=== PATIENT | male | born 1935 | race Caucasian/White ===

== ENCOUNTER → 2016-09-02 | Outpatient (CLI) | payer OTHER, BC | LOC: BHCLAF 13:15 | PROVIDERS: ATTEND Internal Medicine Cardiovascular Disease | DX: I48.91 Unspecified atrial fibrillation (principal); I42.9 Cardiomyopathy, unspecified; I10 Essential (primary) hypertension | CPT/HCPCS: 93306-PO ==

== ENCOUNTER 2017-02-02 07:22 | Outpatient (CLI) | payer OTHER, BC ==
[2017-02-02] MEDS ORDERED: SODIUM BICARBONATE 150 MEQ in D5W 1,000 ML IV SCH (08:00)
[2017-02-02] MEDS ORDERED: IOPAMIDOL (ISOVUE 370) 100 ML BTL IV ONE (09:19)
[2017-02-02 11:11] VITALS: RESP 16
[2017-02-02 16:32] VITALS: BP 120/76; O2SAT 94
== END 2017-02-02 16:33 | disposition home or self-care (01) ==
LOC: FIMAGING 07:22
PROVIDERS: ATTEND Surgery
DX: I74.3 Embolism and thrombosis of arteries of the lower extremities (principal)
CPT/HCPCS: 75635; Q9967

== ENCOUNTER 2017-04-25 08:03 | Day surgery (SDC) | payer OTHER, BC ==
[2017-04-25] MEDS ORDERED: NS 1,000 ML IV ONE (08:09)
[2017-04-25] MEDS ORDERED: DIAZEPAM 5 MG TAB PO ONE (08:09)
[2017-04-25] MEDS ORDERED: ceFAZolin 2 GM/SWFI 2 GM/20 ML SYR IVP ONE (08:09)
[2017-04-25] MEDS ORDERED: diphenhydrAMINE 25 MG CAP PO ONE (08:09)
[2017-04-25] MEDS ORDERED: BACITRACIN IRRIGATION/NS 50,000 UNITS/1,000 ML BTL IRR ONE (08:09)
[2017-04-25] MEDS ORDERED: fentaNYL 100 MCG/2 ML INJ ONE (08:30)
[2017-04-25] MEDS ORDERED: BUPIVACAINE 0.5% 30 ML SDV ONE (08:30)
[2017-04-25] MEDS ORDERED: MIDAZOLAM 2 MG/2 ML VIAL ONE (08:30)
[2017-04-25] MEDS ORDERED: LIDOCAINE 1% 300 MG/30 ML SDV ONE (08:30)
--- NOTE | 2017-04-25 08:31 | CPEKG ---
Heart Rate: 75 RR Interval: 800 P-R Interval: 252 QRSD Interval: 130 QT Interval: 416 QTC Interval: 465 P Idanha: 0 QRS Idanha: 114 T Wave Idanha: -38 EKG Severity - ABNORMAL ECG - EKG Impression: VENTRICULAR-PACED RHYTHM EKG Impression: UNCHANGED IN COMPARISON TO PRIOR FROM 2015 Electronically Signed By: Leland Parham 25-Apr-2017 13:55:16
[2017-04-25 08:53] LABS: PLATELET COUNT 177 10^3/uL (150-400)
[2017-04-25 09:12] LABS: INR 1.33 (0.83-1.16); PROTIME(PATIENT) 16.7 SEC (12.0-15.0)
--- NOTE | 2017-04-25 09:23 | PDPROPOC ---
Sedation Plan of Care Sedation Plan of Care: vital signs stable, mental status noted, patient educated of risks, benefits, alternatives, patient can tolerate sedation ASA Classification: ASA 2 Planned drugs: fentanyl, midazolam Mallampati Score: Class 1 Mallampati Reference Image: Patient passed 3-3-2 rule?: Yes
--- NOTE | 2017-04-25 09:25 | PDGENHP ---
History & Physical Chief Complaint: ICD biventricular pacer at end of life History of Present Illness: 82-year-old male history of nonischemic cardiomyopathy with near normalization of ejection fraction with biventricular pacing and ICD. Device has reached end of life and requires replacement. Pertinent Past, Social, Family History: Family history, social history, past medical history noncontributory. Relevant Physical Exam: Well-nourished well-developed male no distress. Pacemaker pocket left subclavian fossa without erythema edema. Irregular irregular rhythm. 2/6 systolic murmur. Extremities free of edema. Lungs clear. Cardiorespiratory Assessment: No cardiopulmonary contraindications to proceeding with ICD/biventricular pacer generator change.
--- NOTE | 2017-04-25 10:55 | PDCTREPORT ---
Cardiothoracic Procedure Rpt Cardiothoracic Procedure Report: Procedure: Replacement of a ICD/biventricular pacemaker. Indications: Cardiomyopathy with generator at end of life. After obtaining informed consent patient was brought in the fasting state to the cardiac catheterization lab. The left subclavian pacemaker site was sterilely prepped and draped. The old incision was anesthetized with 2% xylocaine. Using a 10 blade an incision was made through the old scar. Using a combination of sharp and blunt dissection and the Bovie catheter the pacemaker pocket was entered and the old device delivered to the field. The leads were removed from the sockets. The old device was removed from the field. The pocket was copiously irrigated with bacitracin solution. A new device was delivered to the field the leads were attached to the device. Set screws were tightened per industry standards. Appropriate sensitivities and thresholds were confirmed through the device. The pocket was closed using a standard three-layer closure with 2 of 0, 3 0 Vicryl and strata Fix skin sutures. Pressure dressing was applied. Patient is taken to recovery for continued care. Results were discussed with the patient's . Device:Iltrevia 7 HF-T Serial [id number]. [id number]. Removed device was a Lumax serial 6. [id number]. Right ventricular lead Linox SD serial 1. [id number]. Right atrial lead Setrox serial 2. [id number] Left ventricular lead Corox serial 3. [id number]. Right ventricular sensing 8.7 mV. Capture 0.6 volts with a pulse with 0.4 milliseconds. Right atrial sensing: Atrial fibrillation. Left ventricular sensing 20 mV. Capture 0.5 volts with a pulse with 0.4 milliseconds. Right ventricular impedance 406 Ohms. Right atrial impedance 493 Ohms. Left ventricular impedance 479 Ohms. Conclusions successful implantation of a new biventricular ICD. Complications: None Patient Problems: Problems Problem Status Onset CAD - Coronary arteriosclerosis Active Aortic valve regurgitation Active Cardiomyopathy Active Cardiac pacemaker in situ Active Cardiac defibrillator in situ Active Chronic kidney disease stage 1 Active Diabetes mellitus type 2 Active Chronic Disease Management/Transitional Care Program Acute Atrial fibrillation Chronic
--- NOTE | 2017-04-25 12:10 | CPEKG ---
Heart Rate: 76 RR Interval: 789 P-R Interval: 148 QRSD Interval: 126 QT Interval: 408 QTC Interval: 459 P Fraser: 0 QRS Fraser: 121 T Wave Fraser: -45 EKG Severity - ABNORMAL ECG - EKG Impression: VENTRICULAR-PACED RHYTHM Electronically Signed By: Leland Parham 25-Apr-2017 13:55:21
== END 2017-04-25 15:09 | disposition home health service (06) ==
LOC: FCATH 08:03
PROVIDERS: ATTEND Internal Medicine Interventional Cardiology
PROC: 0JPT0PZ Removal of Cardiac Rhythm Related Device from Trunk Subcutaneous Tissue and Fascia, Open Approach (ICD-10-PCS; principal; 2017-04-25)
DX: T82.111A Breakdown (mechanical) of cardiac pulse generator (battery), initial encounter (principal); I42.9 Cardiomyopathy, unspecified
CPT/HCPCS: C1882; J0690; J2250; J3010

== ENCOUNTER → 2017-06-26 | Outpatient (CLI) | payer OTHER, BC | LOC: BHFA 15:30 | PROVIDERS: ATTEND Internal Medicine Cardiovascular Disease | DX: I73.9 Peripheral vascular disease, unspecified (principal) ==

== ENCOUNTER 2018-06-28 11:07 | Inpatient (IN) | payer OTHER, BC ==
--- NOTE | 2018-06-28 11:33 | EDPHY ---
H & P Time Seen by Provider: 06/28/18 11:18 HPI/ROS: CHIEF COMPLAINT: Bloody nose, urination difficulty, vomiting HISTORY OF PRESENT ILLNESS: Patient is an 83-year-old male on Coumadin status post DVT who presents emergency department multiple complaints. Last evening he developed a bloody nose. They initially were able to get this under control but it started bleeding at around midnight. The patient's spent an hour and a half trying to get it to stop bleeding. It is not been bleeding this morning. He has no nose pain or discharge. Patient also has a sense of urinary frequency but does not produce any urine when he goes to the bathroom. Patient states "I have a only dribbles." Patient also had an episode of nonbloody emesis. He denies chest pain. Patient has chronic shortness of breath. This does not seem to be worsening. He uses BiPAP at night. He does not use oxygen during the day. Patient also reports increased bilateral pedal edema. REVIEW OF SYSTEMS: 10 systems were reveiwed and are negative with the exception of the elements mentioned in the history of present illness. 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 Oxygen saturation 90% on room air GENERAL: No acute distress, alert. HEENT: Eyes normal to inspection, normal pharynx, no signs of dehydration. Dried blood at naris. No active bleeding. NECK: Normal, supple. RESPIRATORY: Clear to auscultation bilaterally, no rales, rhonchi or wheezing. CVS: Regular rate and rhythm, no rubs, murmurs, or gallops. ABDOMEN: Soft, nontender, nondistended, no organomegaly. Small umbilical hernia. Reducible. : Small amount of urine on his underwear. No lesions. BACK: Normal to inspection, no CVA tenderness. SKIN: Normal color, no rash, warm, dry. No pallor. EXTREMITIES: No pedal edema, no calf tenderness, no Homans sign or cords, no joint swelling. NEURO/PSYCH: Alert and oriented, normal mood and affect, normal motor sensory exam. No obvious cranial nerve deficit. Constitutional: Initial Vital Signs Temperature (C) 36.7 C 06/28/18 11:23 Heart Rate 71 06/28/18 11:23 Respiratory Rate 20 06/28/18 11:23 Blood Pressure 113/88 H 06/28/18 11:23 O2 Sat (%) 91 L 06/28/18 11:23 O2 Delivery Mode Room Air O2 (L/minute) 2 Allergies/Adverse Reactions: No Known Allergies Allergy (Verified 06/28/18 11:22) Home Medications: Medication Instructions Recorded Aspirin [Aspirin 81mg (*)] 81 mg PO DAILY 11/26/11 Furosemide [Lasix 40 MG (*)] 40 mg PO DAILY@11/26/11 Simvastatin [Zocor 20 mg] 20 mg PO DAILY18 11/26/11 Allopurinol [Allopurinol 100 MG 200 mg PO HS 04/23/12 (*)] Calcitriol [Calcitriol (*)] 0.25 mcg PO MOWEFR 06/16/13 Cholecalciferol Vit D3 [Vitamin D3 2,000 units PO MWF 06/16/13 (*)] Glucosamine/Chondroitin 1 cap PO BID 06/16/13 [Glucosamine/Chondroitin (*)] Multivitamins [Multivitamin (*)] 1 tab PO DAILY 06/16/13 Escitalopram Oxalate [Lexapro 10 10 mg PO DAILY 09/23/14 MG] Glimepiride [Amaryl 1 MG (*)] 4 mg PO DAILY 09/23/14 LEVETIRACETAM [Keppra 750 mg] 1,500 mg PO BID 09/23/14 SITAGLIPTIN PHOSPHATE [Januvia 50 50 mg PO DAILY 09/23/14 mg] Spironolactone [Aldactone 25 MG 25 mg PO DAILY 09/23/14 (*)] Vit C/Dl-E AC/Lut/Copper/Znox 1 each PO BID 09/23/14 [Preservision Softgel] Lantus 100 UNITS/ML (*) 40 units SQ HS 02/14/17 Lisinopril [Zestril 2.5 mg (*)] 2.5 mg PO DAILY10 02/14/17 Mirabegron [Myrbetriq] 50 mg PO DAILY 02/14/17 Digoxin [Digitek] 125 mcg PO DAILY 02/15/17 Carvedilol [Coreg (*)] 6.25 mg PO BIDMEAL #60 tab 02/24/17 Warfarin Sodium [Coumadin 3MG (*)] 3 mg PO DAILY16 #30 tab 02/24/17 Medical Decision Making - Diagnostics Imaging Results: Imaging Impressions Chest X-Ray 06/28/18 11:29 Impression: 1. Mild congestive heart failure. 2. No pneumothorax. ED Course/Re-evaluation: In the emergency department I discussed possible etiologies with the patient and . I answered all her questions. IV was placed. Laboratory studies, EKG and chest x-ray were obtained. Procedure: Bedside ultrasound of the bladder Indication: Difficulty urinating A bedside ultrasound of the bladder was performed. There is minimal urine present. There is no shadowing or signs of mass. Discussed ultrasound results with the patient and . Urine is negative. EKG: Ventricular paced at 68. See CBC was unremarkable. White count was 6. Hematocrit was 51. Chemistry panel is unremarkable. Normal renal function. Troponin was negative. Patient' s INR was 2.8. BNP was curried to the [facility] Chest x-ray: Please refer the dictated report. Mild CHF. No infiltrate. I rechecked the patient. Patient was ambulated in the emergency department. Upon returning to the room his oxygen saturation dropped to 85%. I discussed the findings thus far with the patient and his . She states that he was scheduled to have a cardiac echo earlier today but she canceled it due to his vomiting. I discussed disposition options. Patient will be admitted. This was due to his episode of vomiting, oxygen saturation of 85%, pedal edema and possible CHF. Patient currently takes Coumadin for DVT. His INR was 2.8. However, his noted that his right leg is more swollen than the left. An ultrasound will be performed at the [facility] for further evaluation. I discussed case with the hospitalist service. Dr. Pope will admit. I discussed the case with Dr. Parham from Cardiology. They will consult. EMTALA Completed. Pt and aware of plan. Differential Diagnosis: My differential includes but is not limited to renal insufficiency, renal failure, urinary tract infection, urinary retention, CHF, ACS, acute TX, coagulopathy - Data Points Laboratory Results: 06/28/18 06/28/18 06/28/18 12:21 12:17 12:08 POC Sodium 146 mEq/L H mEq/L (135-145) POC Potassium 4.7 mEq/L mEq/L (3.3-5.0) POC Chloride 103.0 mEq/L mEq/L (97-110) POC Total CO2 29 mEq/L mEq/L (22-31) POC BUN 34 mg/dL H mg/dL (7-23) POC Creatinine 1.3 mg/dL mg/dL (0.7-1.3) POC Glucose 131 mg/dL H mg/dL (70-100) POC Calcium 9.6 mg/dL mg/dL (8.5-10.4) POC Troponin I 0.03 ng/mL ng/mL (0.00-0.08) NT-Pro-B Natriuret Pep 7470 pg/mL H pg/mL (0-450) Point of Care Test Results: CBC CBC Collection Date 06/28/18 CBC Collection Time 12:08 WBC 6.60 RBC 5.44 HGB 16.1 HCT 51.2 PLT 132 Neut # 5.10 Neut 77.2 LYMPH # 0.85 LYMPH 12.9 MCV 94.1 Chemistry 06/28/18 06/28/18 12:21 12:17 POC Sodium 146 mEq/L H mEq/L (135-145) POC Potassium 4.7 mEq/L mEq/L (3.3-5.0) POC Chloride 103.0 mEq/L mEq/L (97-110) POC Total CO2 29 mEq/L mEq/L (22-31) POC BUN 34 mg/dL H mg/dL (7-23) POC Creatinine 1.3 mg/dL mg/dL (0.7-1.3) POC Glucose 131 mg/dL H mg/dL (70-100) POC Calcium 9.6 mg/dL mg/dL (8.5-10.4) POC Troponin I 0.03 ng/mL ng/mL (0.00-0.08) Urine Dip Collection Date 06/28/18 Collection Time 11:40 Specific [place] (1.002-1.030) 1.020 PH (5.0-7.5) 5.5 Leukocytes (Negative) Trace Nitrites (Negative) Negative Protein (Negative) 2+ Glucose (Negative) Negative Ketones (Negative) Negative Urobilnogen (0.2-1.0 EU) 1.0 Bilirubin (Negative) Negative Blood (Negative) 1+ Departure - Departure Disposition: [facility] In[facility] Acute Clinical Impression: Epistaxis, Hypoxia, Pedal edema Vomiting Qualifiers: Vomiting type: unspecified Vomiting Intractability: non-intractable Nausea presence: unspecified Qualified Code(s): R11.10 - Vomiting, unspecified CHF (congestive heart failure) Qualifiers: Heart failure type: unspecified Heart failure chronicity: unspecified Qualified Code(s): I50.9 - Heart failure, unspecified Condition: Good
--- NOTE | 2018-06-28 14:13 | CPEKG ---
Test Reason : OPEN Blood Pressure : / mmHG Vent. Rate : 068 BPM Atrial Rate : 000 BPM P-R Int : 088 ms QRS Dur : 138 ms QT Int : 477 ms P-R-T Axes : 000 129 -55 degrees QTc Int : 508 ms Ventricular-paced complexes Confirmed by Corina Mclean ([id number]) on 06/28/2018 2:12:49 PM Referred By: Corina Mclean Confirmed By:Corina Mclean
[2018-06-28] MEDS ORDERED: ONDANSETRON 4 MG/2 ML VIAL IVP PRN (17:28)
[2018-06-28] MEDS ORDERED: PROMETHAZINE HCL 25 MG/ML INJ IVP PRN (17:28)
[2018-06-28] MEDS ORDERED: ACETAMINOPHEN 325 MG TAB PO PRN (17:28)
[2018-06-28] MEDS ORDERED: oxyCODONE IR 5 MG TAB PO PRN (17:28)
[2018-06-28] MEDS ORDERED: ONDANSETRON DISINTEGRATING 4 MG TAB PO PRN (17:28)
[2018-06-28] MEDS ORDERED: HYDROCODONE/APAP 5/325 TAB PO PRN (17:28)
[2018-06-28] MEDS ORDERED: ALBUTEROL 3 ML DEYVIAL IH PRN (17:28)
[2018-06-28] MEDS ORDERED: D50W 25 GM/50 ML SYR IVP PRN (19:44)
--- NOTE | 2018-06-28 19:46 | PDGENHP ---
History and Physical - Chief Complaint bloody nose, urinary frequency - History of Present Illness 83 yo M w/significant PMH for CHF, PAD, CAD, hemorrhagic CVA, DM2 presenting from home with multiple complaints. He notes that yesterday he had 2 nose bleeds , the second one was so significant that he and his had to go online to figure out how to stop it. That stopped, but then this morning, he vomited which he notes he thinks is likely due to swallowing so much blood last night. He no longer feels nauseous and his nose has not begun bleeding again. He has also had several days of urinary frequency and urgency, he feels as if he needs to urinate every few minutes but when he tries to go not much comes out. He states there is some pain as well when he urinates. He also notes that his legs are more swollen than usual. He was told recently to double up on his lasix but does not think that has helped so far. He also states that he has not been able to be very active recently. In the past he would walk up to an hour a day, but no longer can. He does not think that is due to being short of breath or having chest pain however, he says he just feels tired and also the weather has been bad. In UC he was noted to have o2 sats of 85%, he denies feeling short of breath now or recently. History Information - Allergies/Home Medication List Allergies/Adverse Reactions: No Known Allergies Allergy (Verified 06/28/18 11:22) Home Medications: Aspirin [Aspirin 81mg (*)] 81 mg PO DAILY 11/26/11 [Last Taken 06/28/18] Furosemide [Lasix 40 MG (*)] 40 mg PO DAILY 11/26/11 [Last Taken 06/28/18] Simvastatin [Zocor 20 mg] 20 mg PO DAILY18 11/26/11 [Last Taken 04/24/17 20:00] Allopurinol [Allopurinol 100 MG (*)] 200 mg PO HS 04/23/12 [Last Taken 04/24/17 20:00] Calcitriol [Calcitriol (*)] 0.25 mcg PO MWF 06/16/13 [Last Taken 06/27/18] Glucosamine/Chondroitin [Glucosamine/Chondroitin (*)] 1 cap PO BID 06/16/13 [ Last Taken 06/28/18 08:00] Multivitamins [Multivitamin (*)] 1 tab PO DAILY 06/16/13 [Last Taken 04/24/17 08 :00] Escitalopram Oxalate [Lexapro 10 MG] 10 mg PO DAILY 09/23/14 [Last Taken ] LEVETIRACETAM [Keppra 750 mg] 1,500 mg PO BID 09/23/14 [Last Taken 06/28/18 09: 00] Spironolactone [Aldactone 25 MG (*)] 25 mg PO DAILY 09/23/14 [Last Taken ] Vit C/Dl-E AC/Lut/Copper/Znox [Preservision Softgel] 1 each PO BIDMEAL 09/23/14 [Last Taken 04/24/17 20:00] Insulin Glargine,Hum.rec.anlog [Lantus Solostar] 24 - 26 unit SQ HS #0 02/14/17 [Last Taken 06/27/18] Lisinopril [Zestril 2.5 mg (*)] 2.5 mg PO DAILY 02/14/17 [Last Taken 06/28/18] Mirabegron [Myrbetriq] 50 mg PO DAILY 02/14/17 [Last Taken 04/25/17 07:00] Carvedilol [Coreg] 6.25 mg PO BIDMEAL 06/28/18 [Last Taken 06/28/18 08:00] Cholecalciferol Vit D3 [Vitamin D3 2000 units tab (OTC)] 2,000 units PO MWF [Last Taken Unknown] Dulaglutide [Trulicity] 1.5 mg SQ FR 06/28/18 [Last Taken 06/22/18] Glimepiride [Amaryl] 4 mg PO DAILY@06/28/18 [Last Taken 06/28/18] Warfarin Sodium [Coumadin 3MG (*)] 3 mg PO SUTUWETHFRSA@06/28/18 [Last Taken Unknown] Warfarin Sodium [Coumadin 3MG (*)] 4.5 mg PO MO@06/28/18 [Last Taken Unknown] I have personally reviewed and updated: family history, medical history, social history, surgical history - Past Medical History atrial fibrillation, coronary artery disease, cancer (squamous cell of the skin) , CHF (EF as low as 10% in the past, recently normal), CVA (hemorrhagic cva), diabetes type 2, GERD, hypertension, hyperlipidemia, seizures Additional medical history: JOY-cpap at night. PAD. thoracic aortic aneurysm - Surgical History Reports: angioplasty, pacemaker/AICD Additional surgical history: left atrial appendage closure. craniotomy. arterial thromectomy - Family History Positive for: non-pertinent - Social History Smoking Status: Never smoked Alcohol Use: Rarely Drug Use: None Additional social history: , accompanied by his Review of Systems Review of Systems: ROS: 10pt was reviewed & negative except for what was stated in HPI & below Physical Exam Physical Exam: Temp Pulse Resp BP Pulse Ox 36.7 C 68 20 112/71 94 06/28/18 16:46 06/28/18 16:46 06/28/18 16:46 06/28/18 16:46 06/28/18 16:46 O2 (L/minute) 2 Constitutional: chronically ill appearing, obese Eyes: PERRL, anicteric sclera Ears, Nose, Mouth, Throat: moist mucous membranes, hearing normal Cardiovascular: regular rate and rhythym, systolic murmur, edema (2+ BLE) Respiratory: no rales or rhonchi, inspiratory crackles Gastrointestinal: normoactive bowel sounds, soft, non-tender abdomen Genitourinary: no bladder tenderness Skin: warm, normal color Musculoskeletal: no muscle tenderness Neurologic: AAOx3 Psychiatric: interacting appropriately, not anxious, not encephalopathic Lab Data & Imaging Review POC Sodium 146 mEq/L (135-145) H 06/28/18 12:17 POC Potassium 4.7 mEq/L (3.3-5.0) 06/28/18 12:17 POC Chloride 103.0 mEq/L (97-110) 06/28/18 12:17 POC Total CO2 29 mEq/L (22-31) 06/28/18 12:17 POC BUN 34 mg/dL (7-23) H 06/28/18 12:17 POC Creatinine 1.3 mg/dL (0.7-1.3) 06/28/18 12:17 POC Glucose 131 mg/dL (70-100) H 06/28/18 12:17 POC Calcium 9.6 mg/dL (8.5-10.4) 06/28/18 12:17 POC Troponin I 0.03 ng/mL (0.00-0.08) 06/28/18 12:21 NT-Pro-B Natriuret Pep 7470 pg/mL (0-450) H 06/28/18 12:08 Visualized and Interpreted Chest x-ray results: Yes Chest X-Ray results: other (mild chf) Visualized and Interpreted EKG results: Yes EKG additional interpertation: V paced Assessment & Plan Assessment: CHF (congestive heart failure) (Acute) Epistaxis (Acute) Hypoxia (Acute) Pedal edema (Acute) Vomiting (Acute) 83 yo M with MMI presenting to w/urinary complaints, resolved epistaxis and acute hypoxic respiratory failure concerning for acute on chronic chf # acute on chronic CHF: patient with bilateral lower extremity edema, pulmonary edema/hypoxia and elevated bnp, hx of CHF with EF previously as low as 10% more recently normalized. Did have oral lasix prior to arrival, will start 40mg IVP lasix BID in am. Cardiology consulted. Monitor on tele, serial trops, serial ecg. Will check TSH. # acute on chronic hypoxic respiratory failure: patient presenting with o2 sats of 85% and associated HERNANDEZ, at baseline utilizes oxygen only at night, cxr c/w acute chf as above, will monitor on lasix # epistaxis: patient on warfarin, has not recurred, will monitor # paroxysmal a fib: with ecg here showing v paced complexes, had prior left atrial appendage closure, on warfarin, will check PT and continue warfarin and coreg # urinary frequency/urgency: bladder scan showing only 100ml at same time as patient feeling like he has to urinate and cannot, will get UA/culture, patient not currently septic appearing # DM2: with last a1c > 10, will continue op regimen in addition to SSI, repeat A1c # joy: will continue cpap # seizure d/o: as a result of prior cva, will continue keppra # cva: without residual sxs # PAD: s/p thrombectomy and angioplasty with prolonged and complicated ICU course # dysphagia: notes patient having issues at times with choking on food, will ask for ACID TANK LINER to eval # FC # IP status, will require > 48 hours stay for eval/mgmt of above Patient new to my care. Old records reviewed and summarized as above. Care plan reviewed with ER doctor, further hx obtained from patients present at bedside.
[2018-06-28 20:17] LABS: PLATELET COUNT 119 10^3/uL (150-400)
[2018-06-28 20:29] LABS: INR 2.14 (0.83-1.16); PROTIME(PATIENT) 22.9 SEC (12.0-15.0)
[2018-06-28] MEDS ORDERED: INSULIN GLARGINE 100 UNITS/ML UNIT SC SCH (21:00)
[2018-06-28] MEDS: levETIRAcetam 500 MG TAB PO SCH (22:27)
[2018-06-28] MEDS: ALLOPURINOL 100 MG TAB PO SCH (22:27)
[2018-06-29 03:54] LABS: PLATELET COUNT 112 10^3/uL (150-400)
[2018-06-29] MEDS ORDERED: Dulaglutide [Trulicity] 1.5 MG SQ SCH (09:00)
[2018-06-29] MEDS: LISINOPRIL 2.5 MG TAB PO SCH (09:11)
[2018-06-29] MEDS: CHOLECALCIFEROL VIT D3 2,000 UNITS TAB/CAP PO SCH (09:11)
[2018-06-29] MEDS: CALCITRIOL 0.25 MCG CAP PO SCH (09:11)
[2018-06-29] MEDS: ESCITALOPRAM OXALATE 10 MG TAB PO SCH (09:11)
[2018-06-29] MEDS: PRESERVISION AREDS2 FORMULA EYE VIT 1 EACH PO SCH ×2 (09:11→17:55)
[2018-06-29] MEDS: ASPIRIN 81 MG CHEWABLE TAB PO SCH (09:12)
[2018-06-29] MEDS: FUROSEMIDE 40 MG/4 ML VIAL IVP SCH ×2 (09:12→15:10)
[2018-06-29] MEDS: SPIRONOLACTONE 25 MG TAB PO SCH (09:12)
[2018-06-29] MEDS: MULTIVITAMINS 1 EACH TAB PO SCH (09:12)
[2018-06-29] MEDS: levETIRAcetam 500 MG TAB PO SCH ×2 (09:12→21:24)
[2018-06-29] MEDS: CARVEDILOL 6.25 MG TAB PO SCH ×2 (09:12→17:55)
[2018-06-29] MEDS: GLIMEPIRIDE 2 MG TAB PO SCH (09:12)
[2018-06-29] MEDS: INSULIN LISPRO 100 UNIT/ML SC SCH ×3 (09:20→17:59)
[2018-06-29] MEDS: Mirabegron [Myrbetriq] 50 MG PO SCH (09:20)
--- NOTE | 2018-06-29 11:20 | CPEKG ---
Test Reason : OPEN Blood Pressure : / mmHG Vent. Rate : 065 BPM Atrial Rate : 000 BPM P-R Int : 327 ms QRS Dur : 138 ms QT Int : 482 ms P-R-T Axes : 000 108 -64 degrees QTc Int : 502 ms Ventricular-paced rhythm FROM THE RIGHT VENTRICULAR OUTFLOW TRACT Atrial fibrillation Confirmed by Martell Mcgowan ([id number]) on 06/29/2018 11:20:04 AM Referred By: Uzair Pope Confirmed By:Martell Mcgowan
--- NOTE | 2018-06-29 11:39 | PDCARPN ---
Cardiology Progress Note Chief Complaint: Progressive lower extremity swelling has been noted (R>L) Assessment/Plan: Assessment: Patient is an 83 y/o male, well known to [facility], with history of non ischaemic CMP (normalization of the LVEF had been noted) s/p ICD placement, PAD , atrial fibrillation (on coumadin with [id number] score of at least 6), ICB, DM (on insulin with reportedly poor control noted), and JOY, who presented to [facility] ER ([facility]) after a night frought with epistaxis and urinary urgency. Patient also has felt that bilateral lower extremities (right moreso than left) with more swelling noted, but no significant change in weights has been noted ( with some question about that statement). Given the edema that had been noted, cardiology recommended (in the outpatient setting) to double up the lasix therapy for 3-5 days. This did not improve the lower extremity swelling that had been noted. Activity level has dropped given a progression in the degree of dyspnea that has been noted (which aligned with the lower extremity swelling that has been noted). No cardiovascular complaints of chest pains or pressure. No questionable PND and orthopnea. Compliance with prescribed medical therapy has been good. In the ER, patient was given IV lasix as well as IV antibiotic (given concerns about UTI). Today, the patient is feeling much better. A negative balance has been noted ( about 700 cc). BNP elevation was noted yesterday (7470) without elevation to troponin noted. No chest pains or pressure today. No pre admission weight is noted (so we do not have a two point graph at present). No further epistaxis has been noted (this being an issue the night prior to admission) Plan: (1) U/A results pending to rule out UTI (2) Would continue therapy on IV diuretics for the next several days - monitor renal function and electrolytes (3) Continue therapy on Coreg, zestril, and spironolactone for history of HTN with CMP (4) Coumadin should continue with history of atrial fibrillation (5) Statins for HLP to continue with annual assessment of cholesterol and LFTs (6) Ambulation as tolerated - there was mention of possible lower extremity u/s given concerns of DVT, but with patient on therapeutic coumadin, this is less likely (7) Would perform echocardiography for reassessment of LVEF - this testing was scheduled for yesterday, but given the admission to the hospital, it was not performed (in the outpatient setting). Subjective: Patient states that he is feeling better Reviewed/Discussed With: family, hospitalist Objective: Vital Signs (8 Hrs) Temp Pulse Resp BP Pulse Ox 06/29/18 11:05 36.5 C 65 14 104/65 96 06/29/18 09:39 94 06/29/18 08:15 36.5 C 65 20 105/69 93 06/29/18 03:53 36.6 C 65 18 98/64 L 92 Intake/Output (24 Hrs) 06/28/18 06/29/18 06/30/18 05:59 05:59 05:59 Intake Total 440 Output Total 1160 Balance -720 Intake: Oral (ml) 440 Output: Urine (ml) 1160 Urinal 850 Other: Weight 107 kg Number of Voids Urinal 3 Result Diagrams: 06/29/18 03:37 06/29/18 03:37 Cardiac Labs: Cardiac Lab Results (72 Hrs) 06/29/18 06/28/18 03:37 20:00 Troponin I 0.033 0.034 EKG: V paced complexes with underlying atrial fibrillation Echocardiogram: pending - Physical Exam Constitutional: WDWN, no apparent distress, obese Eyes: PERRL, EOMI Ears, Nose, Mouth, Throat: moist mucous membranes Cardiovascular: regular rate and rhythm, no gallops, systolic murmur (soft (II/ ) GIANCARLO), jugular vein distention, pulses symmetric bilat Peripheral Pulses: 1+: dorsalis-pedis (R), dorsalis-pedis (L) Respiratory: clear to auscultate bilat, reduced air movement (in the bases) Gastrointestinal: normoactive bowel sounds Skin: other (bilateral lower extremity edema noted (R>L)), No no ulcers, No erythema Musculoskeletal: no muscular tenderness Neurologic: AAOx3, CN II-XII grossly intact Psychiatric: cooperative, interactive, following commands ICD10 Worksheet Patient Problems: Problems Problem Status Onset CHF (congestive heart failure) Acute Epistaxis Acute Hypoxia Acute Pedal edema Acute Vomiting Acute Aortic valve regurgitation Active CAD - Coronary arteriosclerosis Active 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
--- NOTE | 2018-06-29 13:09 | PDMN ---
Medical Necessity Medical necessity: Pt meets IP criteria per MD & MCG M-190; est los >2 mn for eval/tx of acute on chronic CHF w/pulmonary edema, acute on chronic hypoxic respiratory failure (O2 86% on RA) & associated dyspnea on exertion; also presents w/urinary complaints, resolved epistaxis/vomiting & dysphagia; admit for further workup/monitoring, Cardiology consult & IV Lasix; hx AFIB, diabetes , CVA, seizures; per H&P & order 06/28/18
--- NOTE | 2018-06-29 16:47 | ECHO ---
[email or web address] [address] [address] Main: [phone] Echocardiography Examination Transthoracic Name: NIKHIL VEGA MR#: [id number] Study Date: 06/29/2018 Study Time: 01:21 PM Date of : 1935 Age: 83 year(s) Height: 182.9 cm (72 in.) Weight: 106.6 kg (235 lb.) BSA: 2.28 m2 Gender: Male Examination: Echo Contrast: Image Quality: Adequate Rhythm: Heart Rate: BP: 104 mmHg/65 mmHg Indication: CHF, LE Edema, Abdomen edema Procedure Staff Referring Physician: Relief Manager: Charles Cesar RDCS Reading Physician: Leland Parham MD Requesting Provider: Ordering Physician: Leland Parham MD Indication: CHF, LE Edema, Abdomen edema Measurements Chambers AV/MV Label Value Normal Value Label Value Normal Value EF lower range (%) 15 % AR PHT 0.74 s EF upper range (%) 20 % AR PHT 744 ms IVSd, 2D 1.3 cm (0.6cm - 1.1cm) AR Vmax 3.55 m/s IVSd, MM 1.2 cm (0.6cm - 0.9cm) AV PGmax 4 mmHg LVDd, 2D 6 cm (4.2cm - 5.9cm) AV PGmean 3 mmHg LVDd, MM 7.5 cm (4.2cm - 5.9cm) AV Vmax 0.97 m/s LVDs, 2D 5.6 cm (2.1cm - 4cm) RAGHU (continuity eq. 2 cm2 LVDs, MM 6.8 cm (2cm - 3.8cm) Vmax) LVEF, 2D 15 % (54% - 74%) RAGHU D (continuity eq. 2.1 cm2 LVEF, BP 19 % (55% - 70%) VTI) LVEF, MM 20 % (55% - 70%) MV A Vmax 0.53 m/s LVEF, MOD2 20 % (55% - 70%) MV E' lateral 0.04 m/s LVEF, MOD4 17 % (55% - 70%) MV E' mean 0.06 m/s LVOT PGmax 1 mmHg MV E' septal 0.07 m/s LVOT PGmean 1 mmHg MV E Vmax 0.94 m/s LVOT Vmax 0.56 m/s (0.7m/s - 1.1m/s) MV E/A 1.77 LVOT Vmean 0.39 m/s MV E/E' lateral 26.7 LVOTd 2.1 cm (1.9cm - 2.1cm) MV E/E' mean 17.09 LVPWd, 2D 1.2 cm (0.6cm - 1cm) MV E/E' septal 14.1 (0.45 - 1.25) Patient: NIKHIL VEGA Study Date: 06/29/2018 Page 1 of 3 01:21 PM LVPWd, MM 1.5 cm (0.6cm - 1cm) TV/PV RVDd, 2D 5 cm (1.9cm - 3.8cm) Label Value Normal Value TAPSE 1.8 cm RA Pressure 5 mmHg LA Area, A2C 26.7 cm2 (0cm2 - 20cm2) RVSP 28 mmHg LA Volume, A2C 96 ml (18ml - 58ml) TR Pmax 23 mmHg LA Volume, A4C 145 ml (16ml - 34ml) TR Vmax 2.4 m/s LA Volume, BP 123 ml (18ml - 58ml) NH End torres Cordell 1.13 cm/s LAD Index, 2D 1.89 cm/m2 PV PGmax 3 mmHg LADs, 2D 4.3 cm (3cm - 4cm) PV Vmax, Caliper 0.8 m/s (0.6m/s - 0.9m/s) LAESV index, BP 53.9 ml/m2 RA Area 28.3 cm2 Additional Vessels Label Value Normal Value AoRoot, MM 4.6 cm (2.2cm - 3.7cm) Conclusions (1) Severe left ventricular systolic dysfunction with LVEF estimated to be 19% - diastolic dysfunction is noted (2) Mild to moderate dilation of the RV with moderate reduction in systolic function - ICD lead noted to the RV (3) Severe LA dilation with mild RA dilation (4) Mild mitral regurgitation (5) Trileaflet aortic valve with mild insufficiency (6) Mild tricuspid regurgitation - RVSP was 28 mm Hg (7) Mild pulmonic insuffciency (8) Normal aortic dimensions (9) No pericardial effusion Findings Left Ventricle: Left ventricle is mildly dilated. Global hypokinesis of the left ventricle. The ejection fraction, measured by Simpsons method, is 19 %. EF range is estimated at 15 % - 20 %. Left ventricle wall thickness is normal. Grade II Diastolic Dysfunction. Right Ventricle: Mildly to moderately dilated right ventricle. Right ventricular systolic function is moderately reduced. There is no pacemaker lead noted in the right ventricle. Left Atrium: The left atrium is severely dilated. Left Atrium Measurements LAESV index, BP is 53.9 ml/m2. Right Atrium: The right atrium is mildly dilated. Right Atrium Measurements RA Area is 28.3 cm2. Mitral Valve: Mild mitral regurgitation. No mitral valve stenosis. There is mild mitral calcification. Aortic Valve: Mild aortic regurgitation is present. Tricuspid Valve: Mild tricuspid regurgitation. Right Ventricular systolic pressure is measured at 28 mmHg. Pulmonary artery pressure normal. Patient: NIKHIL VEGA Study Date: 06/29/2018 Page 2 of 3 01:21 PM Pulmonic Valve: Mild pulmonic valve regurgitation is present. Aorta: The aortic root size in M-mode measures 4.6 cm. Ascending aorta is normal in size. Aorta Measurements AoRoot, MM is 4.6 cm. Exam Details Procedure Ordered: Echo Procedure Status: Routine study Image Quality: Adequate Facility Location: Cardiac Echo 1 (No Signature Object) Patient: NIKHIL VEGA Study Date: 06/29/2018 Page 3 of 3 01:21 PM [id number]
--- NOTE | 2018-06-29 17:48 | HOSPPROG ---
Hospitalist Progress Note Assessment/Plan: * Acute on chronic systolic CHF - EF 19%, s/p AICD -IV lasix * Acute on chronic respiratory failure -visibly dyspneic today at rest, 85% RA -due to pulmonary edema and aspiration of blood * Epistaxis -resolved * Afib -continue warfarin * UTI -IV ceftriaxone pending culture * DM II, uncontrolled * Obesity BMI 32 with JOY -CPAP * h/o hemorrhagic CVA * Seizure d/o -Keppra * PVD s/p LE thrombectomy Subjective: Still SOB Objective: Vital Signs Temp Pulse Resp BP Pulse Ox 36.9 C 67 16 90/57 L 94 06/29/18 15:08 06/29/18 15:08 06/29/18 15:08 06/29/18 15:08 06/29/18 15:08 Laboratory Results 06/29/18 03:37 06/29/18 03:37 06/28/18 06/29/18 06/30/18 05:59 05:59 05:59 Intake Total 440 540 Output Total 1160 1200 Balance -720 -660 PT 22.9 SEC (12.0-15.0) H 06/28/18 20:00 INR 2.14 (0.83-1.16) H 06/28/18 20:00 d/w Dr. Parham regarding cardiology consultation ECHO - EF 19% - Physical Exam Constitutional: obese, uncomfortable Cardiovascular: regular rate and rhythym, no murmur, rub, or gallop Respiratory: expiratory wheeze, inspiratory crackles, respiratory distress Gastrointestinal: normoactive bowel sounds, soft, non-tender abdomen, no palpable masses Skin: no rashes or abrasions, no fluctuance, no induration Neurologic: AAOx3, sensation intact bilaterally Psychiatric: interacting appropriately, not anxious, not encephalopathic, thought process linear ICD10 Worksheet Patient Problems: Problems Problem Status Onset CHF (congestive heart failure) Acute Epistaxis Acute Hypoxia Acute Pedal edema Acute Vomiting Acute Aortic valve regurgitation Active CAD - Coronary arteriosclerosis Active 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
[2018-06-29] MEDS: ATORVASTATIN CALCIUM 10 MG TAB PO SCH (17:55)
[2018-06-29] MEDS: WARFARIN SODIUM 3 MG TAB PO SCH (17:55)
[2018-06-29] MEDS ORDERED: INSULIN GLARGINE 100 UNITS/ML UNIT SC SCH (21:00)
[2018-06-29] MEDS: ALLOPURINOL 100 MG TAB PO SCH (21:24)
[2018-06-29] MEDS: INSULIN GLARGINE 100 UNITS/ML UNIT SC SCH (21:25)
[2018-06-30] MEDS: Mirabegron [Myrbetriq] 50 MG PO SCH (08:42)
[2018-06-30] MEDS: INSULIN LISPRO 100 UNIT/ML SC SCH ×3 (09:35→17:38)
[2018-06-30] MEDS: CARVEDILOL 6.25 MG TAB PO SCH ×2 (09:51→18:02)
[2018-06-30] MEDS: ESCITALOPRAM OXALATE 10 MG TAB PO SCH (09:52)
[2018-06-30] MEDS: LISINOPRIL 2.5 MG TAB PO SCH (09:52)
[2018-06-30] MEDS: GLIMEPIRIDE 2 MG TAB PO SCH (09:52)
[2018-06-30] MEDS: PRESERVISION AREDS2 FORMULA EYE VIT 1 EACH PO SCH ×2 (09:52→18:03)
[2018-06-30] MEDS: SPIRONOLACTONE 25 MG TAB PO SCH (09:52)
[2018-06-30] MEDS: ASPIRIN 81 MG CHEWABLE TAB PO SCH (09:52)
[2018-06-30] MEDS: FUROSEMIDE 40 MG/4 ML VIAL IVP SCH ×2 (09:52→14:46)
[2018-06-30] MEDS: MULTIVITAMINS 1 EACH TAB PO SCH (09:52)
[2018-06-30] MEDS: levETIRAcetam 500 MG TAB PO SCH ×2 (09:52→20:43)
--- NOTE | 2018-06-30 10:38 | PDCARPN ---
Cardiology Progress Note Assessment/Plan: Assessment: 1. Nonischemic cardiomyopathy sp BIVICD 2. Atrial fibrillation 3. UTI 4. Epistaxis Plan: 1. Continue BB, ACEI. Continue IV diuretics today, transition to PO tomorrow 2. Rate controlled, continue warfarin 3. IV Abx Hopefully d.c. in 24-48 hrs 06/30/18 10:38 Subjective: Feels much better compared to admission Time Spent with Patient: greater than 35 minutes Time Spent with Patient: Greater than 35 minutes spent on this patients care, greater than 50% of time spent counseling, educating, and coordinating care regarding the above mentioned plan. Objective: Vital Signs (8 Hrs) Temp Pulse Resp BP Pulse Ox 06/30/18 09:51 67 120/77 06/30/18 08:11 36.8 C 66 18 96/61 L 94 Intake/Output (24 Hrs) 06/28/18 06/29/18 06/30/18 11:59 11:59 11:59 Intake Total 440 1090 Output Total 1160 3430 Balance -720 -2340 Intake: Oral (ml) 440 1090 Output: Urine (ml) 1160 3430 Urinal 850 3430 Other: Weight 107 kg 105 kg Number of Voids Urinal 3 1 Result Diagrams: 06/29/18 03:37 06/29/18 03:37 Cardiac Labs: Cardiac Lab Results (72 Hrs) 06/29/18 06/28/18 03:37 20:00 Troponin I 0.033 0.034 Telemetry: AF V paced - Physical Exam Constitutional: healthy appearing, no apparent distress Eyes: PERRL, EOMI Ears, Nose, Mouth, Throat: moist mucous membranes Cardiovascular: regular rate and rhythm, systolic murmur Respiratory: clear to auscultate bilat ICD10 Worksheet Patient Problems: Problems Problem Status Onset CAD - Coronary arteriosclerosis Active Aortic valve regurgitation Active Cardiomyopathy Active 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
[2018-06-30 14:58] LABS: INR 1.65 (0.83-1.16); PROTIME(PATIENT) 18.8 SEC (12.0-15.0)
--- NOTE | 2018-06-30 15:12 | ASMTCMCOM ---
CM Note CM Note Notes: 06/30/2018 Case Management Note Met w/pt during rounds this morning. Pt admitted for CHF, hypoxia and vomiting. PT and OT recommending home care. Met w/pt and Vee [phone] to discuss recommendations by therapies. Both in agreement for home care. Pt has used [facility] in the past and wanted to resume. requested [employer]. Faxed referral. Confirmed acceptance with Ce on the phone. Case Management d/c poc: [facility] RN PT OT SLT and [employer] Csae Management to follow. Date Signed: 06/30/2018 03:12 PM Electronically Signed By:Mayra Bond RN
--- NOTE | 2018-06-30 15:25 | HOSPPROG ---
Hospitalist Progress Note Assessment/Plan: * Acute on chronic systolic CHF - EF 19%, s/p AICD -continue IV lasix * Acute on chronic respiratory failure -improving -due to pulmonary edema and aspiration of blood * Epistaxis -resolved * Afib -continue warfarin * UTI -IV ceftriaxone - culture unremarkable - DC antibiotics -symptoms sound more like BPH -start Flomax -check bladder scan * DM II, uncontrolled * Obesity BMI 32 with JOY -CPAP * h/o hemorrhagic CVA * Seizure d/o -Keppra * PVD s/p LE thrombectomy Subjective: No new complaints. Objective: Vital Signs Temp Pulse Resp BP Pulse Ox 36.8 C 75 18 147/94 H 94 06/30/18 12:16 06/30/18 12:16 06/30/18 12:16 06/30/18 12:16 06/30/18 12:16 Microbiology 06/28/18 19:30 Urine Culture - Final Urine,Clean Catch Four [place]dew Types Laboratory Results 06/29/18 03:37 06/29/18 03:37 06/29/18 06/30/18 07/01/18 05:59 05:59 05:59 Intake Total 440 1090 160 Output Total 1160 3430 600 Balance -720 -2340 -440 PT 18.8 SEC (12.0-15.0) H 06/30/18 14:41 INR 1.65 (0.83-1.16) H 06/30/18 14:41 - Physical Exam Constitutional: no apparent distress, appears nourished, not in pain Cardiovascular: regular rate and rhythym, no murmur, rub, or gallop Respiratory: no respiratory distress, rhonchi Gastrointestinal: normoactive bowel sounds, soft, non-tender abdomen, no palpable masses Skin: no rashes or abrasions, no fluctuance, no induration Neurologic: AAOx3, sensation intact bilaterally Psychiatric: interacting appropriately, not anxious, not encephalopathic, thought process linear ICD10 Worksheet Patient Problems: Problems Problem Status Onset CAD - Coronary arteriosclerosis Active Aortic valve regurgitation Active Cardiomyopathy Active 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
[2018-06-30] MEDS ORDERED: WARFARIN SODIUM 3 MG TAB PO ONE (16:00)
[2018-06-30] MEDS ORDERED: POLYETHYLENE GLYCOL 3350 17 GM PKT PO PRN (16:12)
[2018-06-30] MEDS: TAMSULOSIN HCL 0.4 MG CAP PO SCH (16:20)
[2018-06-30] MEDS: WARFARIN SODIUM 3 MG TAB PO SCH (16:21)
[2018-06-30] MEDS: ATORVASTATIN CALCIUM 10 MG TAB PO SCH (18:02)
[2018-06-30] MEDS: INSULIN GLARGINE 100 UNITS/ML UNIT SC SCH (20:43)
[2018-06-30] MEDS: ALLOPURINOL 100 MG TAB PO SCH (20:43)
[2018-07-01] MEDS: INSULIN LISPRO 100 UNIT/ML SC SCH ×3 (09:05→18:43)
[2018-07-01] MEDS: levETIRAcetam 500 MG TAB PO SCH ×2 (09:06→22:04)
[2018-07-01] MEDS: TAMSULOSIN HCL 0.4 MG CAP PO SCH (09:06)
[2018-07-01] MEDS: FUROSEMIDE 40 MG/4 ML VIAL IVP SCH (09:06)
[2018-07-01] MEDS: GLIMEPIRIDE 2 MG TAB PO SCH (09:07)
[2018-07-01] MEDS: ASPIRIN 81 MG CHEWABLE TAB PO SCH (09:07)
[2018-07-01] MEDS: ESCITALOPRAM OXALATE 10 MG TAB PO SCH (09:07)
[2018-07-01] MEDS: MULTIVITAMINS 1 EACH TAB PO SCH (09:07)
[2018-07-01] MEDS: PRESERVISION AREDS2 FORMULA EYE VIT 1 EACH PO SCH ×2 (09:07→18:43)
[2018-07-01] MEDS: SPIRONOLACTONE 25 MG TAB PO SCH (09:07)
[2018-07-01] MEDS: CARVEDILOL 6.25 MG TAB PO SCH ×2 (09:07→18:43)
[2018-07-01] MEDS: LISINOPRIL 2.5 MG TAB PO SCH (09:07)
[2018-07-01 09:44] LABS: INR 1.77 (0.83-1.16); PROTIME(PATIENT) 19.8 SEC (12.0-15.0)
--- NOTE | 2018-07-01 10:16 | PDCARPN ---
Cardiology Progress Note Assessment/Plan: Assessment: 1. Nonischemic cardiomyopathy sp BIVICD 2. Atrial fibrillation 3. UTI 4. Epistaxis Plan: 1. Continue BB, ACEI. DC IV diuretics, starting on p.o. Lasix tomorrow morning 2. Rate controlled, continue warfarin 3. IV Abx Hopefully d.c. in 24 hours 07/01/18 10:15 Subjective: Feels better today, reports no new symptoms. Pedal edema has improved. Time Spent with Patient: greater than 25 minutes Time Spent with Patient: Greater than 25 minutes spent on this patients care, greater than 50% of time spent counseling, educating, and coordinating care regarding the above mentioned plan. Objective: Vital Signs (8 Hrs) Temp Pulse Resp BP Pulse Ox 07/01/18 08:58 36.5 C 71 18 108/69 98 Intake/Output (24 Hrs) 06/29/18 06/30/18 07/01/18 11:59 11:59 11:59 Intake Total 440 1090 560 Output Total 1160 3430 2600 Balance -720 -2340 -2040 Intake: Oral (ml) 440 1090 560 Output: Urine (ml) 1160 3430 2600 Urinal 850 3430 2600 Other: Weight 107 kg 105 kg 104 kg Number of Voids Incontinence 1 Urinal 3 1 2 Post Void Residual Scan Volume (ml) Urinal 163 Result Diagrams: 06/29/18 03:37 07/01/18 08:19 Cardiac Labs: Cardiac Lab Results (72 Hrs) 06/29/18 06/28/18 03:37 20:00 Troponin I 0.033 0.034 ICD10 Worksheet Patient Problems: Problems Problem Status Onset CAD - Coronary arteriosclerosis Active Aortic valve regurgitation Active Cardiomyopathy Active 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
[2018-07-01] MEDS ORDERED: WARFARIN SODIUM 3 MG TAB PO ONE (16:00)
--- NOTE | 2018-07-01 16:07 | HOSPPROG ---
Hospitalist Progress Note Assessment/Plan: * Acute on chronic systolic CHF - EF 19%, s/p AICD -s/p IV lasix -change to PO per cardiology * Acute on chronic respiratory failure -improving -due to pulmonary edema and aspiration of blood -hopefully can wean to room air before discharge * Epistaxis -resolved * Afib -continue warfarin * UTI -IV ceftriaxone - culture unremarkable - DC antibiotics -symptoms sound more like BPH -start Flomax -bladder scan - post void residual okay 163cc * DM II, uncontrolled * Obesity BMI 32 with JOY -CPAP * h/o hemorrhagic CVA * Seizure d/o -Keppra * PVD s/p LE thrombectomy Per cardiology okay to discharge in am if doing well Subjective: no new complaints. Objective: Vital Signs Temp Pulse Resp BP Pulse Ox 36.6 C 68 18 97/69 L 100 07/01/18 11:59 07/01/18 11:59 07/01/18 11:59 07/01/18 11:59 07/01/18 11:59 Microbiology 06/28/18 19:30 Urine Culture - Final Urine,Clean Catch Four [place] Types Laboratory Results 06/29/18 03:37 07/01/18 08:19 06/30/18 07/01/18 07/02/18 05:59 05:59 05:59 Intake Total 1090 560 Output Total 3430 2600 Balance -2340 -2040 PT 19.8 SEC (12.0-15.0) H 07/01/18 08:19 INR 1.77 (0.83-1.16) H 07/01/18 08:19 - Physical Exam Constitutional: no apparent distress, appears nourished, not in pain Ears, Nose, Mouth, Throat: hard of hearing Cardiovascular: regular rate and rhythym, no murmur, rub, or gallop Respiratory: no respiratory distress, inspiratory crackles (at bases), No reduced air movement, No rhonchi Gastrointestinal: normoactive bowel sounds, soft, non-tender abdomen, no palpable masses Skin: no rashes or abrasions, no fluctuance, no induration Neurologic: AAOx3, sensation intact bilaterally Psychiatric: interacting appropriately, not anxious, not encephalopathic, thought process linear ICD10 Worksheet Patient Problems: Problems Problem Status Onset CAD - Coronary arteriosclerosis Active Aortic valve regurgitation Active Cardiomyopathy Active 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
[2018-07-01] MEDS: WARFARIN SODIUM 3 MG TAB PO SCH (16:35)
[2018-07-01] MEDS: Mirabegron [Myrbetriq] 50 MG PO SCH (16:37)
[2018-07-01] MEDS: ATORVASTATIN CALCIUM 10 MG TAB PO SCH (18:43)
[2018-07-01] MEDS: ALLOPURINOL 100 MG TAB PO SCH (22:04)
[2018-07-01] MEDS: INSULIN GLARGINE 100 UNITS/ML UNIT SC SCH (22:07)
[2018-07-02 04:36] LABS: INR 1.95 (0.83-1.16); PROTIME(PATIENT) 21.3 SEC (12.0-15.0)
--- NOTE | 2018-07-02 09:34 | HOSPPROG ---
Hospitalist Progress Note Assessment/Plan: DIAGNOSES: * Acute systolic heart failure with chronic cardiomyopathy 19% EF * Acute hypoxemic respiratory failure * Atrial fibrillation, rate controlled here, chronic paroxysmal -on Coumadin, INR coming back in to range so far here * Hypoglycemic episode today with diabetes treatment in place (was also low a.m. 06/30) -hemoglobin A1c 8.3 so control at home has been less than ideal, but considering his age and heart issues blood sugar goals should be modest and hypoglycemia avoidance should be primary * Pyuria of unknown significance or cause -asymptomatic and for colony types on culture * Obesity * History of hemorrhagic stroke * Seizure disorder on Keppra * History of peripheral vascular disease status post thrombectomy left leg PLANS: * Continue diuresis, follow fluid status and renal function closely * Continue current meds for AFib follow INR * Decrease his nightly Lantus to 23 units follow sugars closely * Follow his diet related to his blood sugars * Continue off antibiotic right now related to his pyuria Seen by me on hospitalist rounds as well as multidisciplinary rounds today Reviewed in detail with cardiology team today SUBJECTIVE: Feels better overall No pain, no shortness of breath, no lightheadedness OBJECTIVE Vitals reviewed: All stable without fever I&O: 2 L net 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, my review: Rate controlled AFib Exam: alert oriented skin warm dry color ok resps not labored lungs very diminished but clear BSs heart irregular, barely audible heart tones; JVD is still present abd soft nondistended nontender, bowel sounds present limbs warm, still with edema notable at feet and ankles, iv site ok Lab data: Hypoglycemia this morning at 48, 42 by lab draw, now improved at 82 after some glucose BUN remains elevated at 33 stable with stable creatinine 1.1 INR improved at 1.95 still slightly low Objective: Vital Signs Temp Pulse Resp BP Pulse Ox 36.7 C 75 12 108/74 98 07/02/18 07:17 07/02/18 07:17 07/02/18 07:17 07/02/18 07:17 07/02/18 07:17 Laboratory Results 06/29/18 03:37 07/02/18 03:35 07/01/18 07/02/18 07/03/18 06:59 06:59 06:59 Intake Total 560 2050 Output Total 2600 1525 Balance -2039 525 PT 21.3 SEC (12.0-15.0) H 07/02/18 03:35 INR 1.95 (0.83-1.16) H 07/02/18 03:35 - Time Spent With Patient Time Spent with Patient: greater than 35 minutes Time Spent with Patient: Greater than 35 minutes spent on this patients care, greater than 50% of time spent counseling, educating, and coordinating care regarding the above mentioned plan. 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
[2018-07-02] MEDS: LISINOPRIL 2.5 MG TAB PO SCH (09:54)
[2018-07-02] MEDS: MULTIVITAMINS 1 EACH TAB PO SCH (09:55)
[2018-07-02] MEDS: CARVEDILOL 6.25 MG TAB PO SCH ×2 (09:55→18:01)
[2018-07-02] MEDS: PRESERVISION AREDS2 FORMULA EYE VIT 1 EACH PO SCH ×2 (09:55→18:01)
[2018-07-02] MEDS: ESCITALOPRAM OXALATE 10 MG TAB PO SCH (09:55)
[2018-07-02] MEDS: levETIRAcetam 500 MG TAB PO SCH ×2 (09:55→21:36)
[2018-07-02] MEDS: CALCITRIOL 0.25 MCG CAP PO SCH (09:55)
[2018-07-02] MEDS: CHOLECALCIFEROL VIT D3 2,000 UNITS TAB/CAP PO SCH (09:55)
[2018-07-02] MEDS: FUROSEMIDE 80 MG TAB PO SCH (09:55)
[2018-07-02] MEDS: TAMSULOSIN HCL 0.4 MG CAP PO SCH (09:55)
[2018-07-02] MEDS: GLIMEPIRIDE 2 MG TAB PO SCH (09:55)
[2018-07-02] MEDS: ASPIRIN 81 MG CHEWABLE TAB PO SCH (09:56)
[2018-07-02] MEDS: Mirabegron [Myrbetriq] 50 MG PO SCH (09:56)
[2018-07-02] MEDS: INSULIN LISPRO 100 UNIT/ML SC SCH ×3 (09:56→18:04)
[2018-07-02] MEDS: SPIRONOLACTONE 25 MG TAB PO SCH (09:56)
--- NOTE | 2018-07-02 09:58 | PDCARPN ---
Cardiology Progress Note Chief Complaint: SCHF Assessment/Plan: Assessment: 83 yo M with MMP presenting to w/urinary complaints, resolved epistaxis and acute hypoxic respiratory failure concerning for acute exacerbation of CHF. 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 Other PMH includes DM, AF, ICH with RONN closure, thrombectomy to LE now requiring continuous warfarin, previous CVA, JOY, sz d/ o. Pt new to [place]. Chart notes, Simi, labs, imaging reviewed. ECG personally interpreted Found to have UTI, mild CHF on CXR without pleural effusions, NTpBNP 7470, TSH wnl, worsening OLYA and not anemic despite epistaxis. Recent echo shows EF 19%, DD, mild-mod RV dilation with moderate reduction of systolic function, severe LA dilation, mild RA dilation. Previous R/LHC from 06/28 shows PAP 41/21, RV 48/11, RAP 14/16, PA sat 76, IVC sat 77, SVC sat 80, Sharyn cardiact output 5.96 and CI 2.67. LHC showed luminal irregularities in RCA but no flow-limiting obstruction was identified. Plan: # SCHF, RHF: previous viral cardiomyopathy 2013 with normalization of EF on 2017 EF once again low at 19% has diuresed with IV lasix has transitioned to 80 PO Lasix once daily appears near euvolemia # acute on chronic hypoxic respiratory failure: presented with o2 sats of 85% and associated HERNANDEZ at baseline utilizes oxygen only at night will likely warrant outpatient pulmonary evaluation with e/o worsening RHF # epistaxis: patient on warfarin # persistent versus permanent a fib: with ecg here showing v paced complexes and baseline AF had prior left atrial appendage closure, on warfarin on Carvedilol upon review of last pacer check, his LA lead is turned off and b/l rhythm known to be AF # urinary frequency/urgency: possible UTI defer to hospitalist management # DM2: current A1C 8.3% poorly managed DM could certainly worsen SCHF # joy: will continue cpap # seizure d/o: as a result of prior cva, on keppra # cva: without residual sxs # previous LE thrombi: in 2017 patient had b/l thrombi to LE presumably from PAD versus AF requiring thrombolysis hospital course c/b 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 No cp, no palps. Reviewed/Discussed With: hospitalist (Dr. Ortiz) Objective: Vital Signs (8 Hrs) Temp Pulse Resp BP Pulse Ox 07/02/18 07:17 98.0 F 75 12 108/74 98 07/02/18 05:10 18 92 07/02/18 05:00 18 77 L 07/02/18 03:41 97.6 F 86 20 114/82 H 95 Intake/Output (24 Hrs) 07/01/18 07/02/18 07/03/18 05:59 05:59 05:59 Intake Total 560 2050 Output Total 2600 1525 Balance -204 525 Intake: Oral (ml) 560 2050 Output: Urine (ml) 2600 1525 Urinal 2600 1525 Other: Weight 105 kg 104.326 kg Intake Quantity Yes Sufficient Number of Voids Incontinence 1 1 Toilet 1 Urinal 2 Post Void Residual Scan Volume (ml) Urinal 163 156 Result Diagrams: 06/29/18 03:37 07/02/18 03:35 Telemetry: V-paced - Physical Exam Constitutional: no apparent distress Eyes: anicteric sclera Ears, Nose, Mouth, Throat: moist mucous membranes Cardiovascular: regular rate and rhythm, other (distant heart sounds) Respiratory: clear to auscultate bilat (anterior lung rubio) Gastrointestinal: normoactive bowel sounds, no tenderness Skin: other (atrace ankle and pedal edema) Psychiatric: cooperative, interactive ICD10 Worksheet Patient Problems: Problems Problem Status Onset CAD - Coronary arteriosclerosis Active Aortic valve regurgitation Active Cardiomyopathy Active 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
[2018-07-02] MEDS ORDERED: SODIUM FERRIC GLUCONAT/SUCROSE 125 MG in NS 100 ML IV SCH (10:00)
[2018-07-02] MEDS ORDERED: WARFARIN SODIUM 3 MG TAB PO SCH (16:00)
[2018-07-02] MEDS: WARFARIN SODIUM 3 MG TAB PO SCH (16:26)
--- NOTE | 2018-07-02 17:07 | WOCRNPDOC ---
WOCRN Advanced Assessment Note - Skin Integrity Problem, Advanced Assess Left Lateral Ankle Unknown Dressing Type: Open to Air Exudate Amount: None Skin Integrity Problem Comment: Small area of white/chapman discoloration surrounded by 0.5 of erythema. Non painful. No drainage nor open wound. Patient' s SO in the room was concerned and had asked for wound care to round. However there is no open wound at this time. Two other older areas with similar etiology noted that are scarred but not open. Advised leaving area open to air and keeping clean. No dressings necessary. Gaurang RN's in room for care. Wound care will sign off.
[2018-07-02] MEDS: ATORVASTATIN CALCIUM 10 MG TAB PO SCH (18:02)
[2018-07-02] MEDS: ALLOPURINOL 100 MG TAB PO SCH (21:36)
[2018-07-02] MEDS: INSULIN GLARGINE 100 UNITS/ML UNIT SC SCH (21:44)
[2018-07-03 05:54] LABS: INR 1.96 (0.83-1.16); PROTIME(PATIENT) 21.4 SEC (12.0-15.0)
[2018-07-03] MEDS: LISINOPRIL 2.5 MG TAB PO SCH (08:44)
[2018-07-03] MEDS: levETIRAcetam 500 MG TAB PO SCH ×2 (08:44→20:45)
[2018-07-03] MEDS: GLIMEPIRIDE 2 MG TAB PO SCH (08:45)
[2018-07-03] MEDS: CARVEDILOL 6.25 MG TAB PO SCH ×2 (08:45→18:44)
[2018-07-03] MEDS: TAMSULOSIN HCL 0.4 MG CAP PO SCH (08:46)
[2018-07-03] MEDS: FUROSEMIDE 80 MG TAB PO SCH (08:46)
[2018-07-03] MEDS: PRESERVISION AREDS2 FORMULA EYE VIT 1 EACH PO SCH ×2 (08:46→18:41)
[2018-07-03] MEDS: SPIRONOLACTONE 25 MG TAB PO SCH (08:47)
[2018-07-03] MEDS: MULTIVITAMINS 1 EACH TAB PO SCH (08:47)
[2018-07-03] MEDS: ASPIRIN 81 MG CHEWABLE TAB PO SCH (08:47)
[2018-07-03] MEDS: ESCITALOPRAM OXALATE 10 MG TAB PO SCH (08:47)
[2018-07-03] MEDS: INSULIN LISPRO 100 UNIT/ML SC SCH ×3 (08:48→18:40)
--- NOTE | 2018-07-03 13:12 | PDCARPN ---
Cardiology Progress Note Chief Complaint: SCHF Assessment/Plan: Assessment: 83 yo M with MMP presenting to w/urinary complaints, resolved epistaxis and acute hypoxic respiratory failure concerning for acute exacerbation of CHF. 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 Other PMH includes DM, AF, ICH with RONN closure, thrombectomy to LE now requiring continuous warfarin, previous CVA, JOY, sz d/ o. Pt new to [place]. Chart notes, [place], labs, imaging reviewed. ECG personally interpreted Found to have UTI, mild CHF on CXR without pleural effusions but does show mild PHTN, NTpBNP 7470, TSH wnl, worsening OLYA and not anemic despite epistaxis. Recent echo shows EF 19%, DD, mild-mod RV dilation with moderate reduction of systolic function, severe LA dilation, mild RA dilation. Previous R/LHC from 06/28 shows PAP 41/21, RV 48/11, RAP 14/16, PA sat 76, IVC sat 77, SVC sat 80, Sharyn cardiac output 5.96 and CI 2.67. LHC showed luminal irregularities in RCA but no flow-limiting obstruction was identified. Plan: # SCHF, RHF: previous viral cardiomyopathy 2013 with normalization of EF on 2017 EF once again low at 19% has diuresed with IV lasix has transitioned to 80 PO Lasix once daily but noticing decreased output will transition to PO torsemide will consider outpatient nuclear stress test # acute on chronic hypoxic respiratory failure: presented with o2 sats of 85% and associated HERNANDEZ at baseline utilizes oxygen only at night and will take CPAP off will likely warrant outpatient pulmonary evaluation with e/o worsening RHF recommend outpatient pulm eval # epistaxis: patient on warfarin # persistent versus permanent a fib: with ecg here showing v paced complexes and baseline AF had prior left atrial appendage closure, on warfarin on Carvedilol upon review of last pacer check, his LA lead is turned off and b/l rhythm known to be AF # urinary frequency/urgency: possible UTI defer to hospitalist management # DM2: current A1C 8.3% poorly managed DM could certainly worsen SCHF # joy: will continue cpap # seizure d/o: as a result of prior cva, on keppra # cva: without residual sxs # previous LE thrombi: in 2017 patient had b/l thrombi to LE presumably from PAD versus AF requiring thrombolysis hospital course c/b 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 Ortiz) Objective: Vital Signs (8 Hrs) Temp Pulse Resp BP Pulse Ox 07/03/18 11:57 98.2 F 68 17 99/62 L 96 07/03/18 08:59 96 07/03/18 08:50 89 L 07/03/18 08:00 97.7 F 72 18 122/80 H 98 Intake/Output (24 Hrs) 07/02/18 07/03/18 07/04/18 05:59 05:59 05:59 Intake Total 2050 1472 710 Output Total 1525 1425 500 Balance 525 47 210 Intake: Oral (ml) 2050 1472 710 Output: Urine (ml) 1525 1425 500 Toilet 100 500 Urinal 1525 1325 Other: Weight 104.326 kg 103.6 kg Intake Quantity Yes Yes Sufficient Number of Voids Incontinence 1 Toilet 1 1 Urinal 1 Number of Stools Toilet 1 1 Urinal 1 Post Void Residual Scan Volume (ml) Urinal 156 Result Diagrams: 06/29/18 03:37 07/02/18 03:35 Telemetry: reviewed/ paced - Physical Exam Constitutional: no apparent distress Eyes: anicteric sclera Ears, Nose, Mouth, Throat: moist mucous membranes Cardiovascular: irregularly irregular Respiratory: clear to auscultate bilat, inspiratory crackles Gastrointestinal: normoactive bowel sounds Skin: warm, other (trace-1+ edema) Psychiatric: cooperative, interactive ICD10 Worksheet Patient Problems: Problems Problem Status Onset CHF (congestive heart failure) Acute Epistaxis Acute Hypoxia Acute Pedal edema Acute Vomiting Acute Aortic valve regurgitation Active CAD - Coronary arteriosclerosis Active 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
--- NOTE | 2018-07-03 14:14 | HOSPPROG ---
Hospitalist Progress Note Assessment/Plan: DIAGNOSES: * Acute systolic heart failure with chronic cardiomyopathy 19% EF * Acute hypoxemic respiratory failure * Atrial fibrillation, rate controlled here, chronic paroxysmal -on Coumadin, INR coming back in to range so far here * Hypoglycemic episode today with diabetes treatment in place (was also low a.m. 06/30) -hemoglobin A1c 8.3 so control at home has been less than ideal, but considering his age and heart issues blood sugar goals should be modest and hypoglycemia avoidance should be primary * Pyuria of unknown significance or cause -asymptomatic and for colony types on culture * Obesity * History of hemorrhagic stroke * Seizure disorder on Keppra * History of peripheral vascular disease status post thrombectomy left leg Switched to oral Lasix has resulted in cessation of any effective diuresis here. At home they have noticed that oral Lasix has become less effective over time. He still does have some edema of his legs and he may still have some gut edema as possible that oral Lasix would be more effective after further diuresis. However given the fact that he may a poor observed for over time for this and may have trouble with diet compliance we are going to give a try of torsemide to see how that works. PLANS: * Continue diuresis to torsemide at this time to see if will be absorbed better and more effective, follow fluid status and renal function closely * Continue current meds for AFib follow INR * Continue lower dose Lantus at 23 units follow sugars closely * Follow his diet related to his blood sugars * Continue off antibiotic right now related to his pyuria * Consider discharge tomorrow if we have effective diuresis with the torsemide Had a very long conversation with the patient and his today regarding the importance of a low-sodium diet and how to accomplish that and monitor it. We also talked about weighing himself daily and making sure he contacts cardiology team promptly if he has any persistent weight gain more than 4 lb. We talked about the importance of daily exercise, the kinds of exercise there are likely to be helpful for him, and we talked also at length about weight loss diet issues and how that might be helpful for him. Seen by me on hospitalist rounds as well as multidisciplinary rounds today Reviewed in detail with Melany Davidson of cardiology team today SUBJECTIVE: Feeling well overall Using oxygen but not short of breath on that Eating okay OBJECTIVE Vitals reviewed: All stable without fever I&O: No effective diuresis since changed to oral Lasix yesterday Rv Technician, my review: Rate controlled AFib Exam: alert oriented skin warm dry color ok resps not labored lungs very diminished but clear BSs heart irregular, barely audible heart tones; JVD is still present abd soft nondistended nontender, bowel sounds present limbs warm, still with edema notable at feet and ankles, iv site ok Lab data: No further hypoglycemia since change in his blood sugar, fasting was 119 this morning Objective: Vital Signs Temp Pulse Resp BP Pulse Ox 36.8 C 68 17 99/62 L 96 07/03/18 11:57 07/03/18 11:57 07/03/18 11:57 07/03/18 11:57 07/03/18 11:57 Laboratory Results 06/29/18 03:37 07/02/18 03:35 07/02/18 07/03/18 07/04/18 06:59 06:59 06:59 Intake Total 2050 1472 710 Output Total 1525 1425 500 Balance 525 47 210 PT 21.4 SEC (12.0-15.0) H 07/03/18 04:25 INR 1.96 (0.83-1.16) H 07/03/18 04:25 - Time Spent With Patient Time Spent with Patient: greater than 35 minutes Time Spent with Patient: Greater than 35 minutes spent on this patients care, greater than 50% of time spent counseling, educating, and coordinating care regarding the above mentioned plan. 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
[2018-07-03] MEDS: Mirabegron [Myrbetriq] 50 MG PO SCH (14:43)
[2018-07-03] MEDS: TORSEMIDE 20 MG TAB PO SCH ×2 (14:43→20:45)
--- NOTE | 2018-07-03 15:52 | ASMTCMCOM ---
CM Note CM Note Notes: Pts case discussed in tx rounds. PT is recommending HC. SPL and OT has cleared pt to d/c without any needs. CM updated [facility] of this. Pt may d/c today. Dr. Ortiz is aware to order PT, RN, ASSISTANT PARALEGAL services. CM to follow. Plan: [facility]; PT, RN, ASSISTANT PARALEGAL Date Signed: 07/03/2018 03:51 PM Electronically Signed By:KARMEN Jovel
[2018-07-03] MEDS: WARFARIN SODIUM 3 MG TAB PO SCH (16:20)
[2018-07-03] MEDS: ATORVASTATIN CALCIUM 10 MG TAB PO SCH (18:41)
[2018-07-03] MEDS: ALLOPURINOL 100 MG TAB PO SCH (20:45)
[2018-07-03] MEDS: INSULIN GLARGINE 100 UNITS/ML UNIT SC SCH (21:57)
[2018-07-04 04:40] LABS: INR 2.07 (0.83-1.16); PROTIME(PATIENT) 22.3 SEC (12.0-15.0)
[2018-07-04] MEDS ORDERED: TORSEMIDE 20 MG TAB PO ONE (08:27)
[2018-07-04] MEDS ORDERED: TORSEMIDE 20 MG TAB PO SCH ×2 (09:00)
[2018-07-04] MEDS: SPIRONOLACTONE 25 MG TAB PO SCH (09:43)
[2018-07-04] MEDS: TAMSULOSIN HCL 0.4 MG CAP PO SCH (09:43)
[2018-07-04] MEDS: CALCITRIOL 0.25 MCG CAP PO SCH (09:43)
[2018-07-04] MEDS: ESCITALOPRAM OXALATE 10 MG TAB PO SCH (09:43)
[2018-07-04] MEDS: MULTIVITAMINS 1 EACH TAB PO SCH (09:43)
[2018-07-04] MEDS: ASPIRIN 81 MG CHEWABLE TAB PO SCH (09:43)
[2018-07-04] MEDS: CHOLECALCIFEROL VIT D3 2,000 UNITS TAB/CAP PO SCH (09:43)
[2018-07-04] MEDS: levETIRAcetam 500 MG TAB PO SCH (09:43)
[2018-07-04] MEDS: CARVEDILOL 6.25 MG TAB PO SCH (09:44)
[2018-07-04] MEDS: PRESERVISION AREDS2 FORMULA EYE VIT 1 EACH PO SCH (09:44)
[2018-07-04] MEDS: GLIMEPIRIDE 2 MG TAB PO SCH (09:44)
[2018-07-04] MEDS: INSULIN LISPRO 100 UNIT/ML SC SCH ×2 (09:44→12:35)
[2018-07-04] MEDS: LISINOPRIL 2.5 MG TAB PO SCH (09:54)
--- NOTE | 2018-07-04 10:15 | PDDCSUM ---
Discharge Summary Discharge Summary: DISCHARGE DIAGNOSES: * Acute systolic congestive heart failure * New worsening of systolic function with EF 19% * Chronic paroxysmal atrial fibrillation in rate control AFib at this time * Chronic anticoagulation * Chronic kidney disease * Diabetes mellitus type 2 some episodes of fasting hypoglycemia here * Pyuria of uncertain significance but no signs of infection * Obesity * History of peripheral vascular disease * History of hemorrhagic stroke * History of seizure disorder on treatment CONSULTANTS: Melany Davidson of cardiology PROCEDURES: Echocardiogram HOSPITAL COURSE SUMMARY: This patient with known systolic congestive heart failure and AFib comes into the hospital now with significant heart failure with pronounced pulmonary and peripheral edema as well as abdominal bloating and decreased appetite. He had been compliant with his Lasix Coreg lisinopril and other medicines at home. However notably he and his do eat out frequently and they have not been paying very meticulous attention to sodium intake. There is no chest pain or other anginal type symptoms, and nothing to suggest ischemia on his workup here. He does have AFib but he has been rate controlled during his entire hospital stay here. Echocardiogram does show that his ejection fraction is 19 which is lower than on previous studies. He was treated with IV Lasix and had excellent diuresis with this here ( approximately 6 L) documented. When switched back to oral Lasix he had more disappointing results here. He and his had have noticed that he has not responded well to Lasix at home at times even with increasing doses. We therefore switched to torsemide here at this time. We will did discharge him on torsemide. In addition his Coreg has been increased and Flomax is added PENDING TEST RESULTS: None MEDICATION CHANGES: Increasing Coreg to 12.5 twice daily Changed from Lasix to torsemide 60 mg twice daily Flomax 0.4 mg daily is added FOLLOW-UP PLAN: With Dr. Bhakta in Cardiology Clinic in 1 week Greater than 35 minutes bedside and care coordination time today
[2018-07-04 11:23] VITALS: BP 97/68
[2018-07-04] MEDS: Mirabegron [Myrbetriq] 50 MG PO SCH (12:06)
--- NOTE | 2018-07-04 13:34 | PDIAF ---
- Diagnosis Diagnosis: chf Code Status: Full Code - Medication Management Discharge Medications: electronically signed and located in the Home Medication List. - Orders Services needed: Home Care, Registered Nurse, Physical Therapy Home Care Face to Face: I certify that this patient was under my care and that I had the required [id number] encounter meeting the encounter requirements on the discharge day. My findings support the fact that the patient is homebound as defined in Home Care Face to Face Continued: CMS Chapter 7 Medicare Benefits Manual 30.1.1 , The condition of the patient is such that there exists a normal inability to leave home and consequently, leaving home would require a considerable and taxing effort. Isolation Type: None Diet Recommendation: cardiac -low fat low salt Diet Texture: Regular Texture Diet, Thin Liquids, Meds Whole w/Liquids Additional Instructions: Keep to a diet with no more than 2 gm (2000 mg) sodium daily Continue to weigh yourself daily, notify Cardiology Clinic promptly for any persisting weight gain of more than 4 lb Notify Cardiology Clinic if you notice increase in ankle and foot swelling, or abdominal bloating with decreased appetite Daily exercise - Follow Up Care Current Providers and Referrals: Shadi Bhakta MD [Medical Doctor] - 07/11/18 3:00 pm Evelyne Martinez MD [Primary Care Provider] - 07/03/18 1:00 pm NONE *PRIMARY CARE P,. [Unknown] - As per Instructions
--- NOTE | 2018-07-04 14:08 | ASMTDCNOTE ---
Case Management Discharge Discharge Order Complete? Answers: Yes Patient to Obtain Answers: via Family Medications Transportation Arranged Answers: Family/Friends Faxed Final Orders Answers: Yes Notes: [facility] Agency/Facility Transfer Answers: Yes Notes: HC Report Printed & Faxed to Receiving Agency Discharge Comments Notes: 07/04/2018 Case Management Note Pt discharged home with [facility] RN PT BOTANY TEACHER. Faxed final orders. transported home. Date Signed: 07/04/2018 02:08 PM Electronically Signed By:Mayra Bond RN
--- NOTE | 2018-07-04 14:09 | ASDISCHSUM ---
Discharge Information Plan Status:Home with Home Health Medically Cleared to Leave:07/04/2018 Discharge Date:07/04/2018 01:45 PM D/C Disposition:Home Health Service [facility] D/C Disposition:Home, Routine, Self-Care Projected Discharge Date:07/01/2018 11:00 AM Transportation at D/C:Family Discharge Delay Reason: Follow-Up Date:07/01/2018 11:00 AM Discharge Slot: Final Diagnosis: Placement Information Referral Type:*Home Health Care Services Referral ID:[id number] Provider Name:[facility] [place] [address] Address 2: City:[place] Selection Factors: State:[place] Patient Contact Information Contact Name:JESSICA Relationship: Address:[address] [address] City:[place] Alternate Phone: State/Zip Code:[place] [address] Email: Financial Information Financial Class:Medicare Primary Plan Desc:MEDICARE INPATIENT Primary Plan Number:[id number] Secondary Plan Desc:[place] [facility] Secondary Plan Number:[id number] Assessment Information LACE LACE Length of stay for Answers: 4-6 days current admission Acuity / Level of Answers: Yes Care: Did the patient have an inpatient admission? Comorbidities - select Answers: Cerebrovascular disease all that apply (CVA, TIA, aneurysms, vasc ular dementia) Congestive heart failure Coronary Artery Disease Diabetes (uncontrolled or controlled) Other Notes: DVT; HTN # of Emergency department Answers: 1-2 visits in the last 6 months Score: 15 Date Signed: 07/04/2018 02:07 PM Electronically Signed By:Mayra Bond RN [facility] Progress Note CM Note CM Note Notes: 06/30/2018 Case Management Note Met w/pt during rounds this morning. Pt admitted for CHF, hypoxia and vomiting. PT and OT recommending home care. Met w/pt and Vee [phone] to discuss recommendations by therapies. Both in agreement for home care. Pt has used [facility] in the past and wanted to resume. requested LOSS PREVENTION CONSULTANT. Faxed referral. Confirmed acceptance with Ce on the phone. Case Management d/c poc: [facility] RN PT OT SLT and RICHIE Csae Management to follow. Date Signed: 06/30/2018 03:12 PM Electronically Signed By:Mayra Bond RN [facility] CM Progress Note CM Note CM Note Notes: Pts case discussed in tx rounds. PT is recommending HC. SPL and OT has cleared pt to d/c without any needs. CM updated [facility] of this. Pt may d/c today. Dr. Ortiz is aware to order PTCARLOS, RICHIE services. CM to follow. Plan: [facility]; PT, RN, RICHIE Date Signed: 07/03/2018 03:51 PM Electronically Signed By:KARMEN Jovel Case Management Discharge Plan Note Case Management Discharge Discharge Order Complete? Answers: Yes Patient to Obtain Answers: via Family Medications Transportation Arranged Answers: Family/Friends Faxed Final Orders Answers: Yes Notes: [facility] Agency/Facility Transfer Answers: Yes Notes: HC Report Printed & Faxed to Receiving Agency Discharge Comments Notes: 07/04/2018 Case Management Note Pt discharged home with [facility] RN PT LOSS PREVENTION CONSULTANT. Faxed final orders. transported home. Date Signed: 07/04/2018 02:08 PM Electronically Signed By:Mayra Bond RN Intervention Information Intervention Type:*Incorrect Registration Date of Service:06/28/2018 05:27 PM Patient Type:Inpatient Staff Member:CARLOS Rajput, Sarah Hours: Discipline: Severity: Comment: Intervention Type:*IM-Signed Date of Service:07/04/2018 11:11 AM Patient Type:Inpatient Staff Member:Columba Alcantar Hours: Discipline: Severity: Comment:
--- NOTE | 2018-07-09 07:57 | PQFORM ---
PHYSICIAN QUERY FORM Needs Your Response This query form is being sent to you to assure this patient record is coded properly. Please respond to the question below: CONCRETE GRINDER OPERATOR QUESTION: Dear Dr. Ortiz, In the emergency room, Dr. Mclean states hypoxia and on the history and physical, Dr. Pope states acute on chronic hypoxic respiratory failure due to presenting with O2 sats of 85%, dyspnea on exertion, and baseline oxygen at night. This patient progressed to being visibly dyspneic at rest on the second day of admission. He received oxygen therapy and IV Lasix. On the discharge summary, there is no mention of any respiratory failure. Based on the clinical findings and your professional judgment, can any of the following be added to the discharge summary to explain his respiratory status during this admission?: Acute on chronic hypoxemic respiratory failure Chronic hypoxemic respiratory failure Acute hypoxemic respiratory failure Hypoxemia Other Can not be determined Thank you for clarifying, MERCY Tang HIM Coding INSTRUCTIONS FOR RESPONSE: Answer question by clicking on the "Edit Document" button. Move cursor to area below the stars. When complete, hit "Save." Click on the "Sign" button, then click "Sign" again. Type in your PIN and hit "Enter." yes acute hypoxic resp failure should be on diagnosis list MTDD
== END 2018-07-04 13:45 | disposition home health service (06) | DRG 291 ==
LOC: CED 11:07 → CEDHOLD 13:40 → OBSVTOIN 14:28 → F2W 17:10
PROVIDERS: ADMIT Internal Medicine; ATTEND Internal Medicine
DX: I11.0 Hypertensive heart disease with heart failure (principal); I50.23 Acute on chronic systolic (congestive) heart failure; J96.21 Acute and chronic respiratory failure with hypoxia; I48.0 Paroxysmal atrial fibrillation; E11.65 Type 2 diabetes mellitus with hyperglycemia; E66.9 Obesity, unspecified; Z68.32 Body mass index [BMI] 32.0-32.9, adult; I25.10 Atherosclerotic heart disease of native coronary artery without angina pectoris; K21.9 Gastro-esophageal reflux disease without esophagitis; E78.5 Hyperlipidemia, unspecified; R13.10 Dysphagia, unspecified; R35.0 Frequency of micturition; R39.15 Urgency of urination; R82.71 Bacteriuria; G40.909 Epilepsy, unspecified, not intractable, without status epilepticus; G47.33 Obstructive sleep apnea (adult) (pediatric); I73.9 Peripheral vascular disease, unspecified; I71.2 Thoracic aortic aneurysm, without rupture; Z86.73 Personal history of transient ischemic attack (TIA), and cerebral infarction without residual deficits; Z79.01 Long term (current) use of anticoagulants; Z86.718 Personal history of other venous thrombosis and embolism; Z95.810 Presence of automatic (implantable) cardiac defibrillator
CPT/HCPCS: 71046-PO; 80048-ER; 84484-ER; 85025-QW-ER; 92610-GN; 97116-GP; 97161-GP; 97166-GO; 97530-GP; 97535-GO; 99285-ER; J0696; J1815; J1940